=== PATIENT | male | born 1985 | race Caucasian/White ===

== ENCOUNTER → 2016-10-10 | Outpatient (CLI) | payer BC ==
[~2016-10-10] MED LIST: OPTIRAY 320 IV PRN
--- NOTE | 2016-10-10 15:44 | DIAGNOSTIC IMAGING REPORT ---
CT ABD/PELVIS IV AND ORAL CONT CLINICAL HISTORY: Constipation left lower quadrant abdominal pain and bloody stools. COMPARISON STUDY: None. TECHNIQUE: Following the IV administration of 93 mL of Optiray-320, CT scan of the abdomen and pelvis was performed from the lung bases to the proximal femurs. Images are reviewed in the axial, sagittal, and coronal planes. IV contrast was administered without complication. CT DOSE: 573.99 mGy.cm FINDINGS: Lower chest: The heart is normal in size and configuration, without pericardial effusion. The lung bases and pleural spaces are clear. Liver: The contrast-enhanced liver is normal in size, contour, and attenuation. There is no intrahepatic biliary ductal dilatation. The hepatic veins and portal veins are patent. Gallbladder: Unremarkable. Spleen: Normal in size and attenuation. Pancreas: Unremarkable. Adrenal glands: Unremarkable. Kidneys: There is symmetric renal cortical enhancement. The kidneys are normal in size without hydronephrosis. Bowel: There are no transition zones indicate bowel obstruction. The appendix appears normal. There is mild infiltration of the pericolonic fat at the level of the proximal descending colon. There appears be an inflamed diverticulum at this level. Mild diverticulitis is suspected. There are no peridiverticular inflammatory changes. Borderline diffuse colonic wall thickening is likely secondary to incomplete distention, although a minimal diffuse colitis would be difficult to exclude Peritoneum: There is no intraperitoneal free air or abdominal ascites. Vasculature: The abdominal aorta is normal in course and caliber. Adenopathy: None. Pelvic viscera: The bladder, and pelvic viscera are unremarkable. Skeletal structures: No destructive osseous lesions are seen. IMPRESSION: 1. No evidence of bowel obstruction. No evidence of free air 2. Normal appendix 3. Minimal colonic wall thickening and infiltration the pericolonic fat at the level of the proximal descending colon. The findings are likely secondary to mild diverticulitis. Clinical follow-up is recommended Electronically signed by: Parish Lechuga M.D. 10/10/2016 3:43 PM Dictated Date/Time: 10/10/2016 3:38 PM
== END | disposition home or self-care (01) ==
LOC: C.CTS 12:48
PROVIDERS: ATTEND Physician Assistant
DX: R10.32 Left lower quadrant pain (principal); K92.1 Melena; K59.00 Constipation, unspecified

== ENCOUNTER 2017-07-24 21:18 | Emergency (ER) | payer BC, OTHER ==
[~2017-07-24] VITALS: Ht 167.6 cm; Wt 86.6 kg
[2017-07-24 21:23] VITALS: TEMP 37.5; Ht 167.6 cm; Wt 86.6 kg
[2017-07-24] MEDS ORDERED: ALUMINUM/MAGNESIUM SUSP 30 ML UDC PO STA (21:45)
[2017-07-24] MEDS ORDERED: DEXAMETHASONE **PF** INJ 10 MG/ML VIAL IV ONE (21:45)
[2017-07-24] MEDS ORDERED: LIDOCAINE HCL 2% VISC SOLN 20 ML UDC PO STA (21:45)
[2017-07-24] MEDS ORDERED: SODIUM CHLORIDE 0.9% 1000ML 1,000 ML IV STA (21:45)
[2017-07-24] MEDS ORDERED: KETOROLAC TROMETHAMINE 30 MG/ML VIAL IV STA (21:45)
[2017-07-24] MEDS ORDERED: ALBUT/IPRATROP 3MG/0.5MG NEB 3 ML VIAL INH STA (21:45)
[2017-07-24 22:36] LABS: BASO % 0.3 %; BASO ABS # 0.04 K/uL (0-0.2); EOS % 4.6 %; EOS ABS # 0.54 K/uL (0-0.5); HEMATOCRIT 42.2 % (42-52); HEMOGLOBIN 14.8 g/dL (14.0-18.0); IG# 0.05 K/uL (0.00-0.02); LYMPH % 14.5 %; LYMPH ABS # 1.72 K/uL (1.2-3.4); MEAN CELL VOLUME 86.5 fL (80-100); MEAN CORPUSCULAR HEMOGLOBIN 30.3 pg (25-34); MEAN CORPUSCULAR HGB CONC 35.1 g/dl (32-36); MEAN PLATELET VOLUME 9.6 fL (7.4-10.4); MONO % 8.9 %; MONO ABS # 1.06 K/uL (0.11-0.59); NEUT % 71.3 %; NEUT ABS # 8.44 K/uL (1.4-6.5); PLATELET COUNT 402 K/uL (130-400); RED CELL DISTRIBUTION WIDTH CV 12.7 % (11.5-14.5); RED CELL DISTRIBUTION WIDTH SD 40.6 fL (36.4-46.3); WHITE BLOOD COUNT 11.85 K/uL (4.8-10.8)
[2017-07-24] MEDS ORDERED: IBUP-1050 PO (22:40)
[2017-07-24] MEDS ORDERED: ACET-1256 PO (22:40)
[2017-07-24] MEDS ORDERED: BENZ100C84 PO (22:40)
[2017-07-24] MEDS ORDERED: DULO-24 PO (22:40)
[2017-07-24] MEDS ORDERED: DEXT30TA7 PO (22:40)
[2017-07-24 22:53] LABS: CALCIUM 9.2 mg/dl (8.5-10.1); CREATININE 1.07 mg/dl (0.60-1.40); POTASSIUM 3.3 mmol/L (3.5-5.1)
[2017-07-24 22:57] LABS: INFLUENZA B ANTIGEN Neg for Influ B (NEG)
[2017-07-24] MEDS ORDERED: POTASSIUM CHLORIDE 10 MEQ TABCR PO STA (23:02)
--- NOTE | 2017-07-24 23:14 | DIAGNOSTIC IMAGING REPORT ---
CHEST 2 VIEWS ROUTINE HISTORY: cough/fever COMPARISON: None. FINDINGS: The lungs are clear. Cardiac silhouette is normal in size. No pleural effusions. No pneumothorax. Mild S-shaped scoliosis of the thoracolumbar spine. IMPRESSION: No acute process. Electronically signed by: Devin Murdock M.D. 07/24/2017 11:12 PM Dictated Date/Time: 07/24/2017 11:12 PM
--- NOTE | 2017-07-24 23:15 | DIAGNOSTIC IMAGING REPORT ---
SOFT TISSUE NECK CLINICAL HISTORY: dysphagia COMPARISON STUDY: None. FINDINGS: The prevertebral soft tissues and the epiglottis are normal in thickness. The contours of the hypopharynx are within normal limits. No radiopaque foreign bodies. Mild reversal of the normal lordotic curvature of the lower cervical spine. The lung apices are clear. S-shaped scoliosis of the cervical/thoracic spine. The trachea is midline and is patent. IMPRESSION: No significant abnormality within the soft tissues of the neck. Electronically signed by: Devin Murdock M.D. 07/24/2017 11:14 PM Dictated Date/Time: 07/24/2017 11:13 PM
[2017-07-24] MEDS ORDERED: AZITHROMYCIN 250 MG TAB PO STA (23:30)
[2017-07-24] MEDS ORDERED: AZIT250T PO (23:32)
[2017-07-24] MEDS ORDERED: PRED50TA PO (23:32)
[2017-07-24] MEDS ORDERED: LIDO2SOL19 PO (23:34)
[2017-07-24] MEDS ORDERED: ALBUTEROL HFA 8 GM INHALER INH STA (23:38)
[2017-07-24 23:54] VITALS: BP 127/82; PULSE 96; O2SAT 97
--- NOTE | 2017-07-24 23:59 | EMERGENCY ROOM VISIT NOTE ---
History First contact with patient: 21:33 Chief Complaint: FLU LIKE SX Stated Complaint: PARAINFLUENZA, DIFFIUCLTY BREATHING History of Present Illness The patient is a 32 year old male who presents to the Emergency Room with complaints of cough, congestion, headache, sore throat, fever, chills, postnasal drip, fatigue for the past week. Patient saw urgent care was diagnosed with parainfluenza. He was given a cough suppressant pill. His kids have been sick on and off with colds for the past month. Patient denies chest pain, dyspnea, neck stiffness, abdominal pain, vomiting, diarrhea. Review of Systems An 10 system review of systems was completed with positives and pertinent negatives listed in the HPI. Past Medical/Surgical History none Social History Smoking Status: Never Smoker Smokeless Tobacco Use: No Alcohol Use: none Drug Use: none Marital Status: Housing Status: lives with family Occupation Status: employed Current/Historical Medications Scheduled Azithromycin (Zithromax), 250 MG PO DAILY Duloxetine Hcl (Cymbalta), 40 MG PO DAILY Lidocaine Hcl (Mouth-Throat) (Lidocaine Viscous), 10 ML PO TID Prednisone (Prednisone), 50 MG PO DAILY Scheduled PRN Acetaminophen (Tylenol), 1,000 MG PO Q6 PRN for Pain or Fever Benzonatate (Tessalon Perles), 1 CAP PO TID PRN for Cough Dextromethorphan-Guaifenesin (Mucinex Dm), 1 TAB PO Q12 PRN for Cough Ibuprofen (Advil), 400 MG PO Q6 PRN for Pain or Fever Physical Exam Vital Signs Date Time Temp Pulse Resp B/P (MAP) Pulse Ox O2 Delivery O2 Flow Rate FiO2 07/24/17 22:55 104 16 140/80 94 Room Air 07/24/17 21:23 37.5 119 20 129/78 97 Room Air Physical Exam VITALS: Vitals are noted on the nurse's note and reviewed by myself. Vital signs stable. GENERAL: Pleasant male coughing, in no acute distress, nondiaphoretic, well- developed well-nourished. SKIN: The skin was without rashes, erythema, edema, or bruising. There is no tenting of the skin. Capillary reflex less than 2 seconds. HEAD: Normocephalic atraumatic. EARS: External auditory canals clear, tympanic membranes pearly ferrer without erythema or effusion bilaterally. EYES: Pupils equal round and reactive to light and accommodation. Conjunctivae without injection, sclerae without icterus. Extraocular movements intact. NOSE: Patent, turbinates without inflammation or discharge. No sinus tenderness. MOUTH: Mucous membranes moist. Pharynx without erythema or exudate. Uvula midline. Airway patent. Tongue does not deviate. NECK: Supple without nuchal rigidity. No lymphadenopathy. No thyromegaly. Cervical spine is nontender. No JVD. HEART: Regular rate and rhythm without murmurs gallops or rubs. LUNGS: Mild diffuse end expiratory wheezes, without rales or rhonchi. . No retractions or accessory muscle use. ABDOMEN: Positive bowel sounds x 4. Normal tympanic percussion. Soft, nontender, without masses or organomegaly. Velásquez sign negative. No guarding or rebound tenderness. MUSCULOSKELETAL: No muscle atrophy, erythema, or edema noted. NEURO: Patient was alert and oriented to person place and time. Normal sensation to light and sharp touch. No focal neurological deficits. Medical Decision & Procedures Laboratory Results 07/24/17 22:11 Red Blood Count 4.88, Mean Corpuscular Volume 86.5, Mean Corpuscular Hemoglobin 30.3, Mean Corpuscular Hemoglobin Concent 35.1, Mean Platelet Volume 9.6, Neutrophils (%) (Auto) 71.3, Lymphocytes (%) (Auto) 14.5, Monocytes (%) (Auto) 8.9, Eosinophils (%) (Auto) 4.6, Basophils (%) (Auto) 0.3, Neutrophils # (Auto) 8.44, Lymphocytes # (Auto) 1.72, Monocytes # (Auto) 1.06, Eosinophils # (Auto) 0.54, Basophils # (Auto) 0.04 07/24/17 22:11 Test 07/24/17 22:11 White Blood Count 11.85 K/uL (4.8-10.8) Red Blood Count 4.88 M/uL (4.7-6.1) Hemoglobin 14.8 g/dL (14.0-18.0) Hematocrit 42.2 % (42-52) Mean Corpuscular Volume 86.5 fL (80-100) Mean Corpuscular Hemoglobin 30.3 pg (25-34) Mean Corpuscular Hemoglobin Concent 35.1 g/dl (32-36) Platelet Count 402 K/uL (130-400) Mean Platelet Volume 9.6 fL (7.4-10.4) Neutrophils (%) (Auto) 71.3 % Lymphocytes (%) (Auto) 14.5 % Monocytes (%) (Auto) 8.9 % Eosinophils (%) (Auto) 4.6 % Basophils (%) (Auto) 0.3 % Neutrophils # (Auto) 8.44 K/uL (1.4-6.5) Lymphocytes # (Auto) 1.72 K/uL (1.2-3.4) Monocytes # (Auto) 1.06 K/uL (0.11-0.59) Eosinophils # (Auto) 0.54 K/uL (0-0.5) Basophils # (Auto) 0.04 K/uL (0-0.2) RDW Standard Deviation 40.6 fL (36.4-46.3) RDW Coefficient of Variation 12.7 % (11.5-14.5) Immature Granulocyte % (Auto) 0.4 % Immature Granulocyte # (Auto) 0.05 K/uL (0.00-0.02) Anion Gap 7.0 mmol/L (3-11) Est Creatinine Clear Calc Drug Dose 104.1 ml/min Estimated GFR () 107.4 Estimated GFR (Non- 92.7 BUN/Creatinine Ratio 12.1 (10-20) Calcium Level 9.2 mg/dl (8.5-10.1) Monoscreen NEG (NEG) Influenza Type A Antigen Neg for Influ A (NEG) Influenza Type B Antigen Neg for Influ B (NEG) Medications Administered Medications (Trade) Dose Ordered Sig/Gisell Route Start Time Stop Time Status Last Admin Dose Admin Albuterol/ Ipratropium (Duoneb) 3 ml NOW STAT INH 07/24/17 21:45 07/24/17 21:55 DC 07/24/17 22:18 3 ML Dexamethasone Sodium Phosphate (Dexamethasone Inj Pf) 10 mg NOW ONCE IV 07/24/17 21:45 07/24/17 21:55 DC 07/24/17 22:17 10 MG Ketorolac Tromethamine (Toradol Inj) 30 mg NOW STAT IV 07/24/17 21:45 07/24/17 21:55 DC 07/24/17 22:17 30 MG Lidocaine HCl (Viscous Lidocaine 2% Soln) 10 ml NOW STAT PO 07/24/17 21:45 07/24/17 21:55 DC 07/24/17 22:18 10 ML Al Hydroxide/Mg Hydroxide (Maalox Susp) 30 ml NOW STAT PO 07/24/17 21:45 07/24/17 21:55 DC 07/24/17 22:18 30 ML Sodium Chloride 1,000 ml @ 999 mls/hr Q1H1M STAT IV 07/24/17 21:45 07/24/17 22:45 DC 07/24/17 22:17 999 MLS/HR Potassium Chloride (Klor-Con M10) 20 meq NOW STAT PO 07/24/17 23:02 07/24/17 23:03 DC 07/24/17 23:26 20 MEQ Azithromycin (Zithromax Tab) 500 mg NOW STAT PO 07/24/17 23:30 07/24/17 23:31 DC 07/24/17 23:45 500 MG Albuterol (Ventolin Hfa Inhaler) 2 puffs ONE STAT INH 07/24/17 23:38 07/24/17 23:39 DC 07/24/17 23:45 60 PUFFS ED Course Prior records/ancillary studies reviewed. Triage Nursing notes reviewed. Additional history obtained from family. The patient's history was concerning for cold symptoms. Differential diagnosis: Etiologies such as viral syndrome, otitis, pharyngitis, pneumonia, influenza, meningitis, influenza, sinusitis, sepsis, bacteremia, as well as others were entertained. Physical examination: pleasant male speaking in full sentences ER treatment provided: Duo neb, Decadron, GI cocktail, Zithromax, inhaler On reassessment the patient felt better. Diagnostics interpreted by me: The labs revealed hypokalemia and this is placed orally. Negative influenza, negative mono Imaging studies: CHEST 2 VIEWS ROUTINE HISTORY: cough/fever COMPARISON: None. FINDINGS: The lungs are clear. Cardiac silhouette is normal in size. No pleural effusions. No pneumothorax. Mild S-shaped scoliosis of the thoracolumbar spine. IMPRESSION: No acute process. SOFT TISSUE NECK CLINICAL HISTORY: dysphagia COMPARISON STUDY: None. FINDINGS: The prevertebral soft tissues and the epiglottis are normal in thickness. The contours of the hypopharynx are within normal limits. No radiopaque foreign bodies. Mild reversal of the normal lordotic curvature of the lower cervical spine. The lung apices are clear. S-shaped scoliosis of the cervical/thoracic spine. The trachea is midline and is patent. IMPRESSION: No significant abnormality within the soft tissues of the neck. Electronically signed by: Devin Murdock M.D. 07/24/2017 11:14 PM Dictated Date/Time: 07/24/2017 11:13 PM This appears to be consistent with bronchitis. Patient felt much better after being medicated as above. He was able tolerate fluids. His breathing had improved. His coughing had improved. Patient is taking both expectorants and suppressants. He was advised to take one or the other but not both at the same time. He was advised to rest, stay well hydrated and take medications as directed. He was advised to follow-up family here in a few days or here in the ER sooner for high fevers, lethargy, chest pains, dysphagia, worsening signs or symptoms or as needed. Patient was informed that his cough most likely will hang out for a few weeks. By the evaluation outlined above emergent etiologies such as otitis, pharyngitis, pneumonia, meningitis, urinary tract infection, sepsis, bacteremia, as well as others were deemed relatively unlikely. The pt informed about the findings as listed above. All questions were answered and pleased with the treatment. Return instructions were outlined and the patient was discharged in stable condition. Outpatient prescription management: Viscous lidocaine, Zithromax, prednisone Referral: The patient was referred back to their primary care physician for follow-up in 2 to 3 days for a recheck of the current condition. Case reviewed with my attending Medical Decision As above Medication Reconcilliation Current Medication List: was personally reviewed by me Blood Pressure Screening Patient's blood pressure: Normal blood pressure Impression Primary Impression: Acute bronchitis Departure Information Dispostion Home / Self-Care Condition GOOD Prescriptions Lidocaine Hcl (Mouth-Throat) (LIDOCAINE VISCOUS) 2 % Lauryn 10 ML PO TID for 6 Days, #200 ML Prov: Marti Lopez .JAE 07/24/17 Prednisone (Prednisone) 50 Mg Tab 50 MG PO DAILY for 4 Days, #44 TAB Prov: Marti Lopez PA-C 07/24/17 Azithromycin (Zithromax) 250 Mg Tab 250 MG PO DAILY for 4 Days, #4 TAB Prov: Marti Lopez ., JAE 07/24/17 Forms HOME CARE DOCUMENTATION FORM, Work Instructions, Return To Work: 2 days IMPORTANT VISIT INFORMATION Patient Instructions Bronchitis Acute, [facility] Additional Instructions Albuterol Inhaler: Take 2 puffs four times daily for five days, then as needed. Prednisone 50mg: Once daily until the prescription is finished. It is best to take this earlier in the day as some patients note occasional difficulty falling asleep when taken in the late evening. Azithromycin(Zithromax) 250mg: Take one a day for 4 additional days. All antibiotics can cause diarrhea. If this occurs and you feel worse or it does not resolve in 1-2 days follow up with your doctor or return to the Emergency Department as this could be signs of serious underlying problems. Any medication can cause an allergic reaction, stop the pills immediately and return to the ER for rash, hives, breathing difficulties, or swelling. Acetaminophen(Tylenol) may be used for fever or pain. Use 1000mg every six hours as needed. Avoid using more than 3000mg in a 24 hour period. (AND/OR) Ibuprofen(Motrin, Advil) may be used for fever or pain. Use 600mg every six hours as needed. Take with food. Avoid using more than 2400mg in a 24 hour period. Do not use 2400mg per day for more than three consecutive days without physician direction. Prolonged inappropriate use can lead to stomach upset or ulcers. Afrin nasal spray: 2-3 sprays to each nostril twice daily as needed for congestion. Do not use for more than 3-4 days because it can lead to worsening rebound congestion. Pseudoephedrine(Sudaphed): 30-60mg every 6 hours as needed for nasal congestion. Do not take this with other stimulant products or supplements. Rest and drink plenty of fluids. Controlling your fever with Tylenol and Ibuprofen as above will make you feel better. Wash your hands after nose blowing, sneezing, or coughing. Most germs are spread through contact, therefore improper hygiene may result in your close contacts and loved ones becoming ill just like you. Continue current medications. Return to the ER for severe headache, neck stiffness, chest pain, difficulty breathing, fevers, vomiting, worsening of your condition, or as needed. Follow up with your primary physician this week for a recheck of your current condition. Work Instructions Return To Work: 2 days Problem Qualifiers Primary Impression: Acute bronchitis Bronchitis organism: unspecified organism Qualified Codes: J20.9 - Acute bronchitis, unspecified
== END 2017-07-24 23:56 | disposition home or self-care (01) ==
LOC: C.EDB 21:20 → C.EDC 23:56
DX: J20.9 Acute bronchitis, unspecified (principal)